=== PATIENT | male | born 1990 | race Caucasian/White ===

== ENCOUNTER 2023-08-09 21:12 | Emergency (ER) | payer OTHER ==
[~2023-08-09] VITALS: Ht 177.8 cm; Wt 81.6 kg
[2023-08-09] MEDS ORDERED: KETOROLAC TROMETHAMINE 60 MG INJ IM ONE (22:19)
[2023-08-09] MEDS: KETOROLAC TROMETHAMINE 60 MG INJ IM ONE (22:25)
[2023-08-09 23:06] VITALS: BP 134/66; TEMP 97.7; O2SAT 97
== END 2023-08-09 22:40 | disposition home or self-care (01) ==
LOC: ER 21:13
DX: S80.01XA Contusion of right knee, initial encounter (principal); V49.9XXA Car occupant (driver) (passenger) injured in unspecified traffic accident, initial encounter; Y93.89 Activity, other specified; Y92.89 Other specified places as the place of occurrence of the external cause; Y99.8 Other external cause status
CPT/HCPCS: 99283; 73560; 96372; J1885; A4606; A4663